=== PATIENT | female | born 1975 | race Caucasian/White ===

== ENCOUNTER 2019-02-22 01:33 | Emergency (ER) | payer SELFPAY ==
[~2019-02-22] VITALS: Ht 167.6 cm; Wt 86.2 kg
[2019-02-22 01:33] VITALS: BP_SYST 151
[2019-02-22] MEDS ORDERED: DIPH-TET-PERTUS Vaccine 0.5 ML VIAL (ADACEL) I.M. ONE (01:45)
[2019-02-22] MEDS ORDERED: IBUPROFEN 800 MG TABLET PO ONE (01:45)
[2019-02-22] MEDS ORDERED: LEVOFLOXACIN 500 MG TABLET PO ONE (01:45)
[2019-02-22 02:15] VITALS: BP_SYST 140
== END 2019-02-22 02:15 | disposition home or self-care (01) ==
LOC: SED 01:33
DX: S91.332A Puncture wound without foreign body, left foot, initial encounter (principal); W45.0XXA Nail entering through skin, initial encounter; Y93.89 Activity, other specified; Y92.89 Other specified places as the place of occurrence of the external cause; Y99.8 Other external cause status
CPT/HCPCS: 90715; 99283

== ENCOUNTER 2019-05-29 23:37 | Emergency (ER) | payer SELFPAY ==
[~2019-05-29] VITALS: Ht 167.6 cm; Wt 90.3 kg
[2019-05-29 23:47] VITALS: BP_SYST 152
[2019-05-30 01:03] LABS: BARBITURATE, URINE NEGATIVE (NEG <=200); METHAMPHETAMINES SCREEN,URINE POSITIVE (NEG <=500); URINE AMPHETAMINE POSITIVE (NEG <=500)
[2019-05-30 01:04] LABS: BENZODIAZEPINE, URINE NEGATIVE (NEG <=150); CANNABINOID, URINE NEGATIVE (NEG <=50); COCAINE, URINE NEGATIVE (NEG <=150); OPIATE, URINE NEGATIVE (NEG <=100); PHENCYCLIDINE SCREEN,URINE NEGATIVE (NEG <=25); UR TRICYCLIC ANTIDEPRESSANTS NEGATIVE (NEG <=300); URINE METHADONE NEGATIVE (NEG <=200); URINE OXYCODONE SCREEN NEGATIVE (NEG <=100); URINE PROPOXYPHENE SCREEN NEGATIVE (NEG <=300)
[2019-05-30 01:25] VITALS: BP_SYST 152
== END 2019-05-30 01:25 | disposition home or self-care (01) ==
LOC: SED 23:37
DX: T74.61XA Adult forced labor exploitation, confirmed, initial encounter (principal); S00.83XA Contusion of other part of head, initial encounter; F10.129 Alcohol abuse with intoxication, unspecified; F15.10 Other stimulant abuse, uncomplicated; F17.200 Nicotine dependence, unspecified, uncomplicated; R03.0 Elevated blood-pressure reading, without diagnosis of hypertension; Z71.6 Tobacco abuse counseling; Y04.0XXA Assault by unarmed brawl or fight, initial encounter; Y93.89 Activity, other specified; Y92.89 Other specified places as the place of occurrence of the external cause; Y99.8 Other external cause status
CPT/HCPCS: 70486-TC; 80307; 81025; 99284

== ENCOUNTER 2019-08-09 23:58 | Emergency (ER) | payer SELFPAY ==
[~2019-08-09] VITALS: Ht 167.6 cm; Wt 87.5 kg
[2019-08-10 00:05] VITALS: BP_SYST 138
--- NOTE | 2019-08-10 00:25 | NUR ---
Patient to ER bed 8 to gown for evaluation. Side rails up. Report given to Ingrid MOTT.
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
--- NOTE | 2019-08-10 00:49 | NUR ---
ER at bedside examining patient.
[2019-08-10] MEDS ORDERED: IBUPROFEN 600 MG TABLET PO ONE (01:00)
--- NOTE | 2019-08-10 01:30 | NUR ---
patient returned demo of crutches education
[2019-08-10] MEDS ORDERED: HYDROcodone/ACETAMIN 5-325 MG TAB (NORCO/ VICODIN) PO ONE (02:30)
--- NOTE | 2019-08-10 02:38 | NUR ---
[facility] provided and Rx resources for people without medical insurence. patient states she will go to the clinic tomorrow.
[2019-08-10 02:41] VITALS: BP_SYST 120
--- NOTE | 2019-08-10 02:43 | NUR ---
Patient given written and verbal discharge instructions and verbalizes understanding. ER MD discussed with patient the results and treatment provided. Patient in stable condition. ID arm band removed. Rx of [place] 5 and Motrin given. Patient educated on pain management and to follow up with PMD. Pain Scale 0/10.Opportunity for questions provided and answered. Medication side effect fact sheet provided.
== END 2019-08-10 02:43 | disposition home or self-care (01) ==
LOC: SED 23:58
DX: S92.352A Displaced fracture of fifth metatarsal bone, left foot, initial encounter for closed fracture (principal); V23.4XXA Motorcycle driver injured in collision with car, pick-up truck or van in traffic accident, initial encounter; Y93.89 Activity, other specified; Y92.89 Other specified places as the place of occurrence of the external cause; Y99.8 Other external cause status
CPT/HCPCS: 99283

== ENCOUNTER 2022-01-04 22:15 | Emergency (ER) | payer MEDICAID, OTHER ==
[~2022-01-04] VITALS: Ht 170.2 cm; Wt 95.3 kg
[2022-01-04 22:20] VITALS: BP_SYST 136
== END 2022-01-04 23:50 | disposition left against medical advice (07) ==
LOC: SED 22:15
DX: S80.862A Insect bite (nonvenomous), left lower leg, initial encounter (principal); W57.XXXA Bitten or stung by nonvenomous insect and other nonvenomous arthropods, initial encounter; Y93.89 Activity, other specified; Y92.89 Other specified places as the place of occurrence of the external cause; Y99.8 Other external cause status; Z53.21 Procedure and treatment not carried out due to patient leaving prior to being seen by health care provider